=== PATIENT | female | born 1970 | race Two or more races ===

== ENCOUNTER 2020-04-15 16:00 | Emergency (ER) | payer OTHER ==
[~2020-04-15] VITALS: Ht 152.4 cm; Wt 75.0 kg
[2020-04-15 16:05] VITALS: BP 122/80
[2020-04-15] MEDS ORDERED: BACITRACIN ZINC OINT UDPKT TOP ONE (17:00)
[2020-04-15] MEDS ORDERED: ACETAMINOPHEN 325MG TABLET PO ONE (17:00)
[2020-04-15] MEDS ORDERED: LIDOCAINE HCL/PF 1% 10 MG/ML 5ML VIAL IJ ONE (17:00)
== END 2020-04-15 17:45 | disposition home or self-care (01) ==
LOC: ER 16:00
DX: L02.416 Cutaneous abscess of left lower limb (principal)
CPT/HCPCS: 99283; J3490; Z7610

== ENCOUNTER 2021-04-11 11:58 | Emergency (ER) | payer OTHER ==
[~2021-04-11] VITALS: Ht 165.1 cm; Wt 75.0 kg
[2021-04-11] MEDS ORDERED: HYDROCODONE/ACETAMINOPHEN 5/325MG TABLET PO ONE (12:45)
[2021-04-11 13:32] VITALS: BP 174/100
[2021-04-11] MEDS ORDERED: HYDR-4001 MT (15:07)
== END 2021-04-11 15:45 | disposition home or self-care (01) ==
LOC: ER 11:58
DX: M54.59 Other low back pain (principal); M25.511 Pain in right shoulder; Z91.81 History of falling; I10 Essential (primary) hypertension; E11.9 Type 2 diabetes mellitus without complications; Z79.899 Other long term (current) drug therapy
CPT/HCPCS: 72100; 73030; 99284

== ENCOUNTER 2022-04-24 14:49 | Emergency (ER) | payer MEDICAID, OTHER ==
[~2022-04-24] VITALS: Ht 165.1 cm; Wt 102.0 kg
[~2022-04-24 14:49] MED LIST: HYDR-4001 MT
[2022-04-24 14:56] VITALS: BP 140/88
[2022-04-24] MEDS ORDERED: ACETAMINOPHEN 325MG TABLET PO STA (17:32)
[2022-04-24] MEDS ORDERED: CEFTRIAXONE 2 G PREMIX 50 ML IV ONE (17:45)
[2022-04-24] MEDS ORDERED: CEFTRIAXONE 2 G in DEXTROSE 5% WATER 50 ML IV NR (18:00)
[2022-04-24 19:16] LABS: HEMATOCRIT. 46.2 % (36.0-48.0); MEAN CORPUSCULAR HEMOGLOBIN 31.7 pg (28.0-32.0); MEAN CORPUSCULAR VOLUME 91.7 fL (81.0-99.0); MEAN PLATELET VOLUME 9.5 fl (7.4-10.4); PLATELET 220 x1000/uL (130-400); RED BLOOD CELL COUNT 5.04 mill/uL (4.2-5.4); RED CELL DISTRIBUTION WIDTH 13.5 % (11.6-14.6)
[2022-04-24 19:25] LABS: CHLORIDE 100 mEq/L (98-107)
[2022-04-24] MEDS ORDERED: IOHEXOL-300 100 ML BOTTLE ONE (20:47)
[2022-04-24] MEDS ORDERED: SULF1TAB47 MT (21:13)
[2022-04-24 21:38] LABS: PLATELET ESTIMATE NORMAL
== END 2022-04-24 21:57 | disposition home or self-care (01) ==
LOC: ER 14:49
DX: L03.317 Cellulitis of buttock (principal); E11.65 Type 2 diabetes mellitus with hyperglycemia; I10 Essential (primary) hypertension; Z20.822 Contact with and (suspected) exposure to COVID-19
CPT/HCPCS: 36415; 72193; 80053; 81025; 82962; 83605; 85025; 87040; 87426; 96365; 99285; C9803; J0696; J7060; Q9967

== ENCOUNTER 2023-11-25 21:55 | Emergency (ER) | payer MEDICAID, OTHER ==
[~2023-11-25] VITALS: Ht 157.5 cm; Wt 103.0 kg
[~2023-11-25 21:55] MED LIST changes: +SULF1TAB47 MT
[2023-11-25 22:05] VITALS: O2SAT 98
[2023-11-25] MEDS: KETOROLAC 15MG/ML VIAL IM ONE (23:45)
[2023-11-26] MEDS ORDERED: NAPR-1176 MT (02:07)
[2023-11-26] MEDS ORDERED: LIDO700A15 TP (02:07)
[2023-11-26 02:46] VITALS: BP 138/76; PULSE 88; RESP 14; TEMP 97.3
== END 2023-11-26 02:51 | disposition home or self-care (01) ==
LOC: ER 21:55
DX: M54.41 Lumbago with sciatica, right side (principal); F32.9 Major depressive disorder, single episode, unspecified; E11.9 Type 2 diabetes mellitus without complications; I10 Essential (primary) hypertension; Z79.899 Other long term (current) drug therapy
CPT/HCPCS: 96372; 99283

== ENCOUNTER 2024-01-11 14:20 | Emergency (ER) | payer MEDICAID ==
[~2024-01-11] VITALS: Ht 160 cm; Wt 77.0 kg
[~2024-01-11 14:20] MED LIST changes: +LIDO700A15 TP; +NAPR-1176 MT
[2024-01-11 14:24] VITALS: TEMP 98.5; O2SAT 97
[2024-01-11] MEDS: KETOROLAC 30MG/ML VIAL IM ONE (16:07)
[2024-01-11 17:55] VITALS: BP 112/72; PULSE 109; RESP 16
[2024-01-11] MEDS ORDERED: LIDO700A15 TP (17:58)
[2024-01-11] MEDS ORDERED: NAPR-1176 MT (17:58)
== END 2024-01-11 18:59 | disposition home or self-care (01) ==
LOC: ER 14:20
DX: M25.511 Pain in right shoulder (principal); E11.9 Type 2 diabetes mellitus without complications
CPT/HCPCS: 99283; 73030; 96372; J1885